=== PATIENT | male | born 1950 | race Caucasian/White ===

== ENCOUNTER 2020-08-27 09:02 | Inpatient (IN) | payer MEDICARE ==
[~2020-08-27] VITALS: Ht 177.8 cm; Wt 90.7 kg
[2020-08-27] VITALS (41 sets, daily range): BP systolic 118–163; BP diastolic 65–96
[~2020-08-27 09:02] MED LIST: CHOL200052 PO; CLIN-156 PO; GABA-532 PO; LACT1CAP65 PO; LORA0.5T PO; LOSA25TA96 PO; MULT-342 PO; NAPR220C15 PO
--- NOTE | 2020-08-27 09:22 | NUR ---
level1 stroke alert per Dr. rodriguez LSN [id number].
--- NOTE | 2020-08-27 09:42 | NUR ---
PATIENT BACK IN THE ROOM FROM CT.
--- NOTE | 2020-08-27 09:43 | NUR ---
Stroke RN Kari and tele neuro monitor at bedside.
--- NOTE | 2020-08-27 09:44 | NUR ---
on going tele neuro consult.Spouse at bedside.
[2020-08-27] MEDS ORDERED: normal saline 50ml IV soln 50 ML IV SCH (09:50)
[2020-08-27] MEDS ORDERED: alteplase 100MG inj. 100 ML IV ONE (09:50)
[2020-08-27 09:53] LABS: BASOPHILS # (AUTO) 0.1 X10'3 (0-0.2); BASOPHILS % (AUTO) 1.1 % (0-1); EOSINOPHILS # (AUTO) 0.2 X10'3 (0-0.9); EOSINOPHILS % (AUTO) 1.9 % (0-6); HEMATOCRIT 45.1 % (42.0-52.0); HEMOGLOBIN 14.8 g/dl (14.0-17.9); LYMPHOCYTES # (AUTO) 2.4 X10'3 (1.1-4.8); LYMPHOCYTES % (AUTO) 28.2 % (21-51); MEAN CORPUSCULAR HEMOGLOBIN 27.7 PG (27.0-31.0); MEAN CORPUSCULAR HGB CONC 32.9 g/dL (33.0-36.5); MEAN CORPUSCULAR VOLUME 84.4 FL (78-98); MEAN PLATELET VOLUME 7.2 FL (7.4-10.4); MONOCYTES # (AUTO) 1.1 X10'3 (0-0.9); MONOCYTES % (AUTO) 13.3 % (2-12); NEUTROPHILS # (AUTO) 4.7 X10'3 (1.8-7.7); NEUTROPHILS % (AUTO) 55.5 % (42-75); PLATELET COUNT 374 X10'3 (140-440); RED BLOOD COUNT 5.35 X10'6 (4.70-6.10); RED CELL DISTRIBUTION WIDTH 16.1 % (11.5-14.5); WHITE BLOOD COUNT 8.4 X10'3 (4.5-11.0)
--- NOTE | 2020-08-27 09:55 | NUR ---
tPA bolus given,dose verified with Stroke RN/Kari.
--- NOTE | 2020-08-27 10:01 | NUR ---
pt started on Tpa per Neurologist.
[2020-08-27] MEDS ORDERED: iohexol 350MG/ML 100ml bottle IV ONE (10:04)
[2020-08-27 10:10] LABS: PARTIAL THROMBOPLASTIN TIME 27 SECONDS (22-32)
[2020-08-27 10:11] LABS: ALANINE AMINOTRANSFERASE 15 U/L (12-78); ALBUMIN 3.5 G/DL (3.4-5.0); ALBUMIN/GLOBULIN RATIO 1.1 (1.1-1.5); ALKALINE PHOSPHATASE 122 IU/L (46-116); ANION GAP 11 (8-16); ASPARTATE AMINO TRANSFERASE 14 U/L (10-37); BILIRUBIN,TOTAL 0.8 MG/DL (0.1-1.0); BLOOD UREA NITROGEN 9 MG/DL (7-18); BUN/CREATININE RATIO 11.3 (5.4-32.0); CALCIUM 8.9 MG/DL (8.5-10.1); CHLORIDE 102 MMOL/L (99-107); GLUCOSE 96 MG/DL (70-104); POTASSIUM 4.2 MMOL/L (3.5-5.1); SODIUM 136 MMOL/L (135-145); TOTAL CARBON DIOXIDE 23.5 MMOL/L (24-32); TOTAL PROTEIN 6.7 G/DL (6.4-8.2); eGFR > 90 ML/MIN
--- NOTE | 2020-08-27 10:30 | NUR ---
pt back in the room after another ct.Kari/Stroke RN at bedside.
--- NOTE | 2020-08-27 10:43 | NUR ---
spouse and stroke RN at bedside,no noted adverse reaction from Tpa.
[2020-08-27] MEDS ORDERED: Neutra Phos packet PO PRN (11:45)
[2020-08-27] MEDS: normal saline 1000ml 1,000 ML IV SCH ×3 (11:45→20:42)
[2020-08-27] MEDS ORDERED: magnesium Cl slow-release 64mg tablet PO PRN (11:45)
[2020-08-27] MEDS: pantoprazole 40 MG vial IV SCH (11:45)
[2020-08-27] MEDS ORDERED: magnesium 2GM in 50ml NS 50 ML IV PRN (11:45)
[2020-08-27] MEDS ORDERED: potassium Cl 20 mEq SR tablet PO PRN ×2 (11:45)
[2020-08-27] MEDS ORDERED: sodium phosphate inj. 15 MMOL in dextrose 5%-water 250 ML IV PRN (11:45)
[2020-08-27] MEDS ORDERED: sodium phosphate inj. 30 MMOL in dextrose 5%-water 250 ML IV PRN (11:45)
[2020-08-27] MEDS ORDERED: magnesium hydroxide 30ml (MOM) UD suspension PO PRN (11:45)
[2020-08-27] MEDS ORDERED: morphine 4 MG/ML inj SYRINge IV PRN (11:45)
[2020-08-27] MEDS ORDERED: ondansetron/PF 4mg/2ml inj IV PRN (11:45)
[2020-08-27] MEDS ORDERED: acetaminophen 325mg tablet PO PRN ×2 (11:45)
[2020-08-27] MEDS ORDERED: magnesium 4gm in 100ml NS 100 ML IV PRN (11:45)
--- NOTE | 2020-08-27 12:17 | NUR ---
Dr. Garrido at bedside.
[2020-08-27 12:22] LABS: CHOL/HDL RATIO 3.2 (0.00-4.99); CHOLESTEROL 165 MG/DL (0-200); HDL CHOLESTEROL 51 MG/DL (35-60); LDL CHOLESTEROL 92 MG/DL (50-100); TRIGLYCERIDES 123 MG/DL (20-135)
[2020-08-27] MEDS ORDERED: MELA10TA PO (12:44)
[2020-08-27] MEDS ORDERED: LOSA50TA64 PO (12:44)
[2020-08-27] MEDS ORDERED: TRAM50TA2 PO (12:44)
[2020-08-27] MEDS ORDERED: DOCU100C40 PO (12:44)
[2020-08-27] MEDS ORDERED: METO50TA17 PO (12:44)
[2020-08-27] MEDS ORDERED: FINA5TAB11 PO (12:44)
[2020-08-27] MEDS ORDERED: CLON-371 PO (12:44)
[2020-08-27] MEDS ORDERED: MONT10TA32 PO (12:44)
[2020-08-27] MEDS ORDERED: ZINC50TA67 PO (12:44)
[2020-08-27] MEDS ORDERED: NITR0.4T51 SL (12:44)
[2020-08-27] MEDS: docusate sod 100mg capsule PO SCH (19:29)
[2020-08-27] MEDS: morphine 2 MG/ML inj. syringe IV PRN ×2 (19:29→23:27)
[2020-08-28] VITALS (29 sets, daily range): BP systolic 132–164; BP diastolic 69–92
[2020-08-28] MEDS: normal saline 1000ml 1,000 ML IV SCH ×2 (03:19→14:25)
[2020-08-28] MEDS: morphine 2 MG/ML inj. syringe IV PRN ×2 (03:32→07:32)
[2020-08-28 06:13] LABS: BASOPHILS # (AUTO) 0.1 X10'3 (0-0.2); BASOPHILS % (AUTO) 1.4 % (0-1); EOSINOPHILS # (AUTO) 0.3 X10'3 (0-0.9); EOSINOPHILS % (AUTO) 3.3 % (0-6); HEMATOCRIT 45.3 % (42.0-52.0); HEMOGLOBIN 14.8 g/dl (14.0-17.9); LYMPHOCYTES # (AUTO) 2.4 X10'3 (1.1-4.8); LYMPHOCYTES % (AUTO) 26.8 % (21-51); MEAN CORPUSCULAR HEMOGLOBIN 27.8 PG (27.0-31.0); MEAN CORPUSCULAR HGB CONC 32.7 g/dL (33.0-36.5); MEAN PLATELET VOLUME 7.2 FL (7.4-10.4); MONOCYTES # (AUTO) 1.3 X10'3 (0-0.9); NEUTROPHILS % (AUTO) 54.5 % (42-75); PLATELET COUNT 338 X10'3 (140-440); RED BLOOD COUNT 5.33 X10'6 (4.70-6.10); RED CELL DISTRIBUTION WIDTH 16.5 % (11.5-14.5); WHITE BLOOD COUNT 9.1 X10'3 (4.5-11.0)
[2020-08-28 06:27] LABS: ALBUMIN 3.2 G/DL (3.4-5.0); ANION GAP 9 (8-16); BLOOD UREA NITROGEN 11 MG/DL (7-18); BUN/CREATININE RATIO 15.3 (5.4-32.0); CALCIUM 8.7 MG/DL (8.5-10.1); CHLORIDE 105 MMOL/L (99-107); CREATININE 0.72 MG/DL (0.60-1.10); GLUCOSE 105 MG/DL (70-104); MAGNESIUM 1.9 MG/DL (1.5-2.4); PHOSPHORUS 3.2 MG/DL (2.3-4.5); SODIUM 140 MMOL/L (135-145); TOTAL CARBON DIOXIDE 25.7 MMOL/L (24-32); eGFR > 90 ML/MIN
[2020-08-28] MEDS: pantoprazole 40 MG vial IV SCH (07:31)
[2020-08-28] MEDS: docusate sod 100mg capsule PO SCH ×2 (07:31→20:03)
[2020-08-28] MEDS: atorvastatin 20mg tablet PO SCH (07:31)
[2020-08-28] MEDS ORDERED: nitroGLYCERIN 0.4mg SUBLingual tab SL PRN (11:05)
[2020-08-28] MEDS: traMADol 50MG tablet PO PRN ×3 (11:26→20:02)
--- NOTE | 2020-08-28 12:20 | NUR ---
Spoke with the neurologist Dr. Liriano for follow-up recommendations; orders for 81mg Aspirin daily. No need for Plavix or other anti-platelet/anti-coagulation at this time per conversation.
[2020-08-28] MEDS ORDERED: aspirin 325mg tablet, delayed-release (Ecotrin) PO SCH (13:00)
[2020-08-28] MEDS: aspirin 81mg tablet.DR PO SCH (13:15)
--- NOTE | 2020-08-28 15:00 | NUR ---
Patient transferred to Neuro room 4009 with all belongings. Report given to Susana ROACH with all questions answered.
--- NOTE | 2020-08-28 15:10 | NUR ---
Patient just got to here accompanied by ICU nurse Caesar. Patient alert, oriented x 4. Patient wanted to pee into the bathroom Addendum: 08/28/20 at 1544 by Daniel Hargrove RN Assisted patient to the bathroom using a front wheel walker, no arms or legs deficit, patient steady on his gait although he stated that his vision is not a good as it was. Safety measures to prevent fall was discussed with the patient such as using call light for assistance and not to get up by himself. Patient verbalized understanding of instructions given about fall prevention.
--- NOTE | 2020-08-28 15:46 | NUR ---
Physical therapist seen patient and assisted patient back to bed.
--- NOTE | 2020-08-28 18:31 | NUR ---
Patient in room ORTHO 4009. I have received report from Daniel ROACH and had the opportunity to ask questions and assume patient care.
--- NOTE | 2020-08-28 18:31 | NUR ---
Problems reprioritized. Patient report given, questions answered & plan of care reviewed with Kat ROACH.
[2020-08-28] MEDS: clonazePAM 1mg tablet PO SCH (20:03)
[2020-08-28] MEDS ORDERED: montelukast 10mg tablet PO SCH (21:00)
[2020-08-28] MEDS ORDERED: Melatonin 3mg tablet PO SCH (21:00)
[2020-08-29] MEDS: traMADol 50MG tablet PO PRN ×3 (00:31→10:52)
[2020-08-29 02:00] VITALS: BP 139/75
--- NOTE | 2020-08-29 06:03 | NUR ---
Problems reprioritized. Patient report given, questions answered & plan of care reviewed with Cielo ROACH.
--- NOTE | 2020-08-29 06:10 | NUR ---
RECEIVED REPORT FROM MARLEY HOBBS
[2020-08-29] MEDS: docusate sod 100mg capsule PO SCH (07:19)
[2020-08-29] MEDS: clonazePAM 1mg tablet PO SCH (07:40)
[2020-08-29] MEDS: aspirin 81mg tablet.DR PO SCH (07:40)
[2020-08-29] MEDS: atorvastatin 20mg tablet PO SCH (07:41)
[2020-08-29 08:00] VITALS: BP 134/77
[2020-08-29] MEDS ORDERED: docusate sod 100mg capsule PO SCH (08:00)
[2020-08-29] MEDS ORDERED: metoprolol tartrate 50mg tablet PO SCH (08:00)
[2020-08-29] MEDS ORDERED: non-formulary drug (Zinc 1 TAB) PO SCH (08:00)
[2020-08-29] MEDS ORDERED: aspirin 81mg tablet.DR PO SCH (08:00)
[2020-08-29] MEDS ORDERED: cholecalciferol (vitamin D3) 1,000 unit (25mcg) tablet PO SCH (08:00)
[2020-08-29] MEDS ORDERED: finasteride 5mg tablet PO SCH (08:00)
[2020-08-29] MEDS ORDERED: pantoprazole 40mg Tablet.DR PO SCH (08:00)
[2020-08-29] MEDS ORDERED: multivitamins, therapeutics tablet PO SCH (08:00)
[2020-08-29] MEDS ORDERED: losartan 50mg tablet PO SCH (08:00)
[2020-08-29 08:34] LABS: BASOPHILS # (AUTO) 0.1 X10'3 (0-0.2); BASOPHILS % (AUTO) 1.4 % (0-1); EOSINOPHILS # (AUTO) 0.3 X10'3 (0-0.9); EOSINOPHILS % (AUTO) 4.2 % (0-6); HEMATOCRIT 45.1 % (42.0-52.0); HEMOGLOBIN 14.6 g/dl (14.0-17.9); LYMPHOCYTES # (AUTO) 2.1 X10'3 (1.1-4.8); MEAN CORPUSCULAR HEMOGLOBIN 27.8 PG (27.0-31.0); MEAN CORPUSCULAR HGB CONC 32.4 g/dL (33.0-36.5); MEAN CORPUSCULAR VOLUME 85.9 FL (78-98); MEAN PLATELET VOLUME 7.4 FL (7.4-10.4); MONOCYTES # (AUTO) 1.1 X10'3 (0-0.9); MONOCYTES % (AUTO) 12.9 % (2-12); NEUTROPHILS # (AUTO) 4.5 X10'3 (1.8-7.7); NEUTROPHILS % (AUTO) 55.5 % (42-75); PLATELET COUNT 341 X10'3 (140-440); RED BLOOD COUNT 5.25 X10'6 (4.70-6.10); RED CELL DISTRIBUTION WIDTH 16.2 % (11.5-14.5); WHITE BLOOD COUNT 8.2 X10'3 (4.5-11.0)
[2020-08-29 08:48] LABS: ALBUMIN 3.1 G/DL (3.4-5.0); ANION GAP 9 (8-16); BLOOD UREA NITROGEN 8 MG/DL (7-18); BUN/CREATININE RATIO 12.5 (5.4-32.0); CALCIUM 8.8 MG/DL (8.5-10.1); CHLORIDE 105 MMOL/L (99-107); CREATININE 0.64 MG/DL (0.60-1.10); GLUCOSE 101 MG/DL (70-104); MAGNESIUM 2.1 MG/DL (1.5-2.4); POTASSIUM 4.3 MMOL/L (3.5-5.1); SODIUM 138 MMOL/L (135-145); TOTAL CARBON DIOXIDE 24.1 MMOL/L (24-32); eGFR > 90 ML/MIN
[2020-08-29 12:00] VITALS: BP 122/72
[2020-08-29] MEDS ORDERED: ASPI-1071 PO (13:02)
[2020-08-29] MEDS ORDERED: ATOR20TA66 PO (13:02)
--- NOTE | 2020-08-29 13:34 | NUR ---
PT D/C WITH INSTRUCTIONS, UNDERSTANDING OF INSTRUCTIONS AND W/ALL BELONGINGS INCLUDING HOME FWW IN WHEELCHAIR ACCOMPANIED BY NURSING STAFF TO PRIVATE VEHICLE TO GO HOME AND F/U W/PCP PT AND WANTED TO GO HOME AND SINCE IT IS A HOLIDAY WEEKEND AND THAT THE DR OFFICE MAY NOT BE OPEN THEY KNOW THAT PT NEED TO F/U W/PCP TO START OCCUPATIONAL THERAPY AND PHYSICAL THERAPY [place] F/U WITH AN EYE DOCTOR, GAVE PT PAPER SCRIPTS FOR 81 MG ASPRIN AND 20 MG LIPITOR
== END 2020-08-29 13:37 | disposition home or self-care (01) | DRG 63 ==
LOC: ER 09:03 → CICU 2S 11:42 → ORTHO 4S 08-28 15:00
PROVIDERS: ADMIT Internal Medicine Critical Care Medicine; ATTEND Internal Medicine Critical Care Medicine
PROC: 3E03317 Introduction of Other Thrombolytic into Peripheral Vein, Percutaneous Approach (ICD-10-PCS; principal; 2020-08-27)
PROC: B3251ZZ Computerized Tomography (CT Scan) of Bilateral Common Carotid Arteries using Low Osmolar Contrast (ICD-10-PCS; 2020-08-27)
PROC: B32G1ZZ Computerized Tomography (CT Scan) of Bilateral Vertebral Arteries using Low Osmolar Contrast (ICD-10-PCS; 2020-08-27)
PROC: B32R1ZZ Computerized Tomography (CT Scan) of Intracranial Arteries using Low Osmolar Contrast (ICD-10-PCS; 2020-08-27)
PROC: B3281ZZ Computerized Tomography (CT Scan) of Bilateral Internal Carotid Arteries using Low Osmolar Contrast (ICD-10-PCS; 2020-08-27)
DX: I63.9 Cerebral infarction, unspecified (principal); E78.5 Hyperlipidemia, unspecified; F17.200 Nicotine dependence, unspecified, uncomplicated; R29.702 NIHSS score 2; H53.2 Diplopia; I10 Essential (primary) hypertension; Z79.899 Other long term (current) drug therapy; Z82.49 Family history of ischemic heart disease and other diseases of the circulatory system; Z88.0 Allergy status to penicillin
CPT/HCPCS: 36415; 70450; 70496; 70498; 71045; 80048; 80053; 80061; 82948; 83735; 84100; 84443; 85025; 85610; 85730; 87081; 93005; 93306; 96365; 97161; 97530; 99291; C9113; G0378; J2270; J2405; J2997; J7030; Q9967